=== PATIENT | female | born 1990 | race Caucasian/White ===

== ENCOUNTER → 2017-01-29 | Outpatient (CLI) | payer BC | LOC: MW.CHOBGYN 10:36 | PROVIDERS: ATTEND Nurse Practitioner Women's Health | DX: R10.2 Pelvic and perineal pain (principal) | CPT/HCPCS: 36415; 84703; 85025 ==

== ENCOUNTER 2020-08-31 09:10 | Day surgery (SDC) | payer BC, OTHER ==
[2020-08-28 11:20] LABS: BLOOD UREA NITROGEN,BUN 10 mg/dL (7.0-18.0); CARBON DIOXIDE,CO2 29.1 mmol/L (21.0-32.0); CHLORIDE,CL 103 mmol/L (98-107); GLUCOSE RANDOM 87 mg/dL (74-106); POTASSIUM,K 4.6 mmol/L (3.5-5.1); SODIUM,NA 140 mmol/L (136-145)
[~2020-08-31 09:10] MED LIST: Sodium Chloride 0.9% 10 ML SDV IV PRN; Sodium Chloride 0.9% 10 ML Syringe FLUSH PRN; Sodium Chloride 0.9% 2.5 ML Syringe FLUSH PRN
[2020-08-31] MEDS ORDERED: Lidocaine 2% 5 ML SDV ONE (09:39)
[2020-08-31] MEDS ORDERED: Ondansetron 4 MG/2 ML SDV ONE (09:39)
[2020-08-31] MEDS ORDERED: fentaNYL 250 MCG/5 ML SDV ONE (09:39)
[2020-08-31] MEDS ORDERED: Propofol 200 MG/20 ML SDV ONE (09:39)
[2020-08-31] MEDS ORDERED: Midazolam 1 MG/ML 2 ML SDV ONE (09:39)
[2020-08-31] MEDS ORDERED: Dexamethasone 4 MG/ML 5 ML MDV ONE (09:39)
[2020-08-31] MEDS ORDERED: Rocuronium Bromide 50 MG/5 ML Syringe ONE (09:39)
[2020-08-31] MEDS ORDERED: fentaNYL 100 MCG/2 ML SDV IVPUSH PRN (09:49)
[2020-08-31] MEDS ORDERED: Scopolamine 1.5 MG Transdermal Patch TRDERM PRN (09:58)
--- NOTE | 2020-08-31 10:02 | PCM.PREANE ---
Preanesthetic Assessment - Anesthesia/Transfusion/Family Hx Anesthesia History: Prior Anesthesia Without Reaction Family History of Anesthesia Reaction: No Transfusion History: No Prior Transfusion(s) Intubation History: Unknown - Review of Systems General: No Symptoms Pulmonary: No Symptoms Cardiovascular: No Symptoms Gastrointestinal: Nausea Neurological: No Symptoms Other: Reports: None - Physical Assessment Vital Signs: Last Vital Signs Temp 36.0 C L 08/31/20 09:30 Pulse 78 08/31/20 09:30 Resp 16 08/31/20 09:30 BP 112/64 08/31/20 09:30 Pulse Ox 97 08/31/20 09:30 Height: 5 ft 1 in Weight: 43.091 kg ASA Class: 2 Mental Status: Alert & Oriented x3 Airway Class: Mallampati = 1 Dentition: Reports: Normal Dentition Thyro-Mental Finger Breadths: 3 Mouth Opening Finger Breadths: 3 ROM/Head Extension: Full Lungs: Clear to Auscultation, Normal Respiratory Effort Cardiovascular: Regular Rate, Regular Rhythm - Lab Values: Laboratory Last Values WBC 10.14 K/uL (4.0-11.0) 08/28/20 10:20 RBC 4.28 M/uL (4.30-5.90) L 08/28/20 10:20 Hgb 12.4 g/dL (12.0-16.0) 08/28/20 10:20 Hct 37.8 % (36.0-46.0) 08/28/20 10:20 MCV 88.3 fL (80.0-98.0) 08/28/20 10:20 MCH 29.0 pg (27.0-32.0) 08/28/20 10:20 MCHC 32.8 g/dL (31.0-37.0) 08/28/20 10:20 RDW Std Deviation 42.5 fl (28.0-62.0) 08/28/20 10:20 RDW Coeff of Enrrique 13 % (11.0-15.0) 08/28/20 10:20 Plt Count 398 K/uL (150-400) 08/28/20 10:20 MPV 9.80 fL (7.40-12.00) 08/28/20 10:20 Nucleated RBC % 0.0 /100WBC 08/28/20 10:20 Nucleated RBCs # 0 K/uL 08/28/20 10:20 Sodium 140 mmol/L (136-145) 08/28/20 10:20 Potassium 4.6 mmol/L (3.5-5.1) 08/28/20 10:20 Chloride 103 mmol/L (98-107) 08/28/20 10:20 Carbon Dioxide 29.1 mmol/L (21.0-32.0) 08/28/20 10:20 BUN 10 mg/dL (7.0-18.0) 08/28/20 10:20 Creatinine 0.8 mg/dL (0.6-1.0) 08/28/20 10:20 Est Cr Clr Drug Dosing 70.58 mL/min 08/28/20 10:20 Estimated GFR (MDRD) > 60.0 ml/min 08/28/20 10:20 Glucose 87 mg/dL (74-106) 08/28/20 10:20 Calcium 9.2 mg/dL (8.5-10.1) 08/28/20 10:20 HCG, Qual NEGATIVE (NEG) 08/28/20 10:20 Blood Type O NEGATIVE 08/28/20 10:20 Antibody Screen NEGATIVE 08/28/20 10:20 - Allergies Allergies/Adverse Reactions: Allergies Allergy/AdvReac Type Severity Reaction Status Date / Time No Known Allergies Allergy Verified 08/25/20 12:08 - Blood Blood Available: No - Anesthesia Plan Pre-Op Medication Ordered: None - Acknowledgements Anesthesia Type Planned: General Anesthesia Pt an Appropriate Candidate for the Planned Anesthesia: Yes Alternatives and Risks of Anesthesia Discussed w Pt/Guardian: Yes Pt/Guardian Understands and Agrees with Anesthesia Plan: Yes PreAnesthesia Questionnaire - Past Health History Medical/Surgical History: Denies Medical/Surgical History HEENT History: Reports: Impaired Vision Other HEENT History: wears glasses Cardiovascular History: Reports: None Respiratory History: Reports: None Gastrointestinal History: Reports: GERD Genitourinary History: Reports: None [employer] History: Reports: Other (See Below) Other OB/BYN History: Mass on left uterus. Surgery done to remove mass and left ovary. Left tube, right ovary/tube, and uterus intact. Musculoskeletal History: Reports: Arthritis Neurological History: Reports: None Psychiatric History: Reports: Anxiety Endocrine/Metabolic History: Reports: None Hematologic History: Reports: None Immunologic History: Reports: None Oncologic (Cancer) History: Reports: None Dermatologic History: Reports: Eczema - Infectious Disease History Infectious Disease History: Reports: Chicken Pox Other Infectious Disease History: when a child - Past Surgical History Head Surgeries/Procedures: Reports: None HEENT Surgical History: Reports: None Cardiovascular Surgical History: Reports: None GI Surgical History: Reports: None Female Surgical History: Reports: None, Other (See Below) (Laparotomy with left oophorectomy (Dr Irene) 2016) Musculoskeletal Surgical History: Reports: None - SUBSTANCE USE Tobacco Use Status *Q: Light Tobacco User (5 cigarettes per day) - HOME MEDS Home Medications: Home Meds Hydrocodone/Acetaminophen [Hydrocodone-Acetamin 5-325 mg] 1 tab PO ASDIRECTED PRN 08/28/20 [History] No115/Iron/Folic Acid [ 19 Chewable Tablet] 2 tab PO DAILY 08/28/20 [History] - CURRENT (IN HOUSE) MEDS Current Meds: Current Medications Fentanyl (Sublimaze) 50 mcg IVPUSH Q5M PRN PRN Reason: Pain (severe 7-10) Stop: 09/01/20 09:50 Sodium Chloride (Saline Flush) 10 ml FLUSH ASDIRECTED PRN PRN Reason: Keep Vein Open Sodium Chloride (Saline Flush) 2.5 ml FLUSH ASDIRECTED PRN PRN Reason: Keep Vein Open Sodium Chloride (Normal Saline) 10 ml IV ASDIRECTED PRN PRN Reason: IV Use Discontinued Medications Dexamethasone (Dexamethasone) Confirm Administered Dose 20 mg .ROUTE .STK-MED ONE Stop: 08/31/20 09:40 Fentanyl (Sublimaze) Confirm Administered Dose 250 mcg .ROUTE .STK-MED ONE Stop: 08/31/20 09:40 Lidocaine (Xylocaine-Mpf 2%) Confirm Administered Dose 5 ml .ROUTE .STK-MED ONE Stop: 08/31/20 09:40 Midazolam HCl (Versed 1 Mg/Ml) Confirm Administered Dose 2 mg .ROUTE .STK-MED ONE Stop: 08/31/20 09:40 Ondansetron HCl (Zofran) Confirm Administered Dose 4 mg .ROUTE .STK-MED ONE Stop: 08/31/20 09:40 Propofol (Diprivan 20 Ml) Confirm Administered Dose 400 mg .ROUTE .STK-MED ONE Stop: 08/31/20 09:40 Rocuronium Robinson (Rocuronium Robinson) Confirm Administered Dose 50 mg .ROUTE .[facility] Stop: 08/31/20 09:40
[2020-08-31] MEDS ORDERED: Scopolamine 1.5 MG Transdermal Patch ONE (10:04)
[2020-08-31] MEDS ORDERED: Lactated Ringers 1,000 ML IV SCH (10:15)
[2020-08-31] MEDS ORDERED: Ketamine 500 mg/10 ML MDV ONE (11:32)
[2020-08-31] MEDS ORDERED: HYDROmorphone 2 MG/ML Syringe ONE (11:32)
[2020-08-31] MEDS ORDERED: Glycopyrrolate 0.2 MG/ML SDV ONE (11:48)
[2020-08-31] MEDS ORDERED: Ketorolac 30 MG/ML SDV ONE (11:48)
[2020-08-31] MEDS ORDERED: Ondansetron 4 MG/2 ML SDV IVPUSH PRN (12:04)
[2020-08-31] MEDS ORDERED: Promethazine 25 MG/ML SDV IM PRN (12:04)
[2020-08-31] MEDS ORDERED: Morphine 4 MG/ML Syringe IVPUSH PRN (12:04)
[2020-08-31] MEDS ORDERED: Ketorolac 30 MG/ML SDV IVPUSH ONE (12:04)
[2020-08-31] MEDS ORDERED: Acetaminophen/oxyCODONE 325-5 MG Tab PO PRN (12:04)
[2020-08-31] MEDS ORDERED: Bupivacaine 0.25% 10 ML SDV ONE (12:04)
[2020-08-31] MEDS ORDERED: Octyl 2-Cyanoacrylate 1 Tube ONE (12:04)
--- NOTE | 2020-08-31 12:04 | PCM.OPNOTE ---
- General Post-Op/Procedure Note Date of Surgery/Procedure: 08/31/20 Operative Procedure(s): Laprotomy. Pre Op Diagnosis: ovarian Cyst. Post-Op Diagnosis: Same Anesthesia Technique: General ET Tube Primary Surgeon: Artie Irene Sandwich Hand: Salud Branham EBL in mLs: 150 Complications: None Condition: Good
--- NOTE | 2020-08-31 13:09 | PCM.POSTAN ---
POST ANESTHESIA ASSESSMENT - MENTAL STATUS Mental Status: Alert, Oriented - VITAL SIGNS Vital Signs: Last Vital Signs Temp 36.3 C 08/31/20 12:30 Pulse 61 08/31/20 13:01 Resp 15 08/31/20 13:01 BP 119/80 08/31/20 13:01 Pulse Ox 100 08/31/20 13:01 - RESPIRATORY Respiratory Status: Respiratory Rate WNL, Airway Patent, O2 Saturation Stable - CARDIOVASCULAR CV Status: Pulse Rate WNL, Blood Pressure Stable - GASTROINTESTINAL GI Status: No Symptoms - PAIN Pain Score: 4 - POST OP HYDRATION Hydration Status: Adequate & Stable - OBSERVATIONS Free Text/Narrative:: No anesthesia problems
[2020-08-31] MEDS: Acetaminophen/oxyCODONE 325-5 MG Tab PO PRN ×2 (13:45→18:11)
--- NOTE | 2020-08-31 14:50 | OR ---
SURGEON: Artie Irene MD DATE OF PROCEDURE: 08/31/2020 PREOPERATIVE DIAGNOSIS: Large right ovarian cyst, resolved to be endometrioma of the right ovary. POSTOPERATIVE DIAGNOSIS: Large right ovarian cyst, resolved to be endometrioma of the right ovary. OPERATION PERFORMED: Diagnostic laparoscopy converted to exploratory laparotomy with the right ovarian cystectomy and peritoneal lavage. PRIMARY SURGEON: Artie Irene MD MONUMENT SETTER: Salud Branham. ANESTHESIA: General endotracheal intubation, Saranya Don. ESTIMATED BLOOD LOSS: 150 mL. COMPLICATIONS: None. FINDING: Endometrioma of the right ovary. INDICATIONS FOR SURGERY: [place] referred to the admit note. PROCEDURE IN DETAIL: The patient was brought to the OR, properly identified. After adequate level of general anesthesia, the patient placed in lithotomy position, access to the abdomen and the vagina. The patient was prepped and draped in sterile fashion as usual. Straight catheter used to empty the bladder and Hulka manipulator placed in the uterus for manipulation. The operation shifted abdominally. Stab wound done beneath the umbilicus. The Veress needle was placed in the peritoneal cavity and that cavity insufflated with 3.5 carbon dioxide. Utilizing Visiport technique, the laparoscope inserted in the peritoneal cavity. Inspection of the pelvic organ revealed there was evidence of endometriosis in the pelvis and it is consistent with her previous diagnosis with her other ovary that this most likely is an endometrioma. A 10/12 trocar placed in the left iliac fossa. I tried to maneuver, and I decompressed the cyst laparoscopically. However, I felt it is to do an adequate job to excise the whole endometriotic cyst and that the operation has to be converted to laparotomy, so we proceeded with that. She had a midline incision. I opened the midline incision. Samira fascia and rectus fascia were opened in direction of the incision. Once I had entered, then thorough irrigation of the peritoneal cavity was done. The right ovary was pulled to the outside and then the edge and the landmark of the endometriotic cyst were identified. Using electrocautery, the cyst wall and some of the ovarian tissue were excised and removed and sent for histopathology for frozen section. Then, the remaining part of the ovary was thoroughly irrigated with a copious amount of normal saline. The edge of the ovary was not bleeding, so a loose interrupted suture was applied to pull the ovary together. Once was that done, then inspection of the entire operative field showed no oozing, no bleeding, and then thorough irrigation was performed. After that, the abdominal wall was closed in layer including the laparoscopic incision. Instrument and sponge count was correct. The patient tolerated the procedure well, went to recovery room in stable general condition. MADELINE DIXON /[id number]
[2020-08-31] MEDS ORDERED: Ketorolac 30 MG/ML SDV IVPUSH PRN (18:00)
[2020-09-01] MEDS: Acetaminophen/oxyCODONE 325-5 MG Tab PO PRN ×2 (05:21→09:36)
[2020-09-01 06:57] LABS: BLOOD UREA NITROGEN,BUN 7 mg/dL (7.0-18.0); CARBON DIOXIDE,CO2 24.2 mmol/L (21.0-32.0); CHLORIDE,CL 101 mmol/L (98-107); GLUCOSE RANDOM 103 mg/dL (74-106); SODIUM,NA 136 mmol/L (136-145)
[2020-09-01 08:15] VITALS: BP 99/54; PULSE 67
--- NOTE | 2020-09-01 08:36 | PCM48HPAN ---
Post Anesthesia Note - EVALUATION WITHIN 48HRS OF ANESTHETIC Vital Signs in Normal Range: Yes Patient Participated in Evaluation: Yes Respiratory Function Stable: Yes Airway Patent: Yes Cardiovascular Function Stable: Yes Hydration Status Stable: Yes Pain Control Satisfactory: Yes Nausea and Vomiting Control Satisfactory: Yes Mental Status Recovered: Yes Vital Signs: Last Vital Signs Temp 36.9 C 09/01/20 07:47 Pulse 67 09/01/20 07:47 Resp 16 09/01/20 07:47 BP 99/54 L 09/01/20 07:47 Pulse Ox 95 09/01/20 07:47 - COMMENTS/OBSERVATIONS Free Text/Narrative:: The patient has no complaints at this time. The patient appears comfortable and in no acute distress. There were no apparent anesthetic complications at this time. Discharge per criteria.
--- NOTE | 2020-09-01 09:29 | PCM.SURGPN ---
- General Info Date of Service: 09/01/20 Functional Status: Reports: Pain Controlled - Review of Systems General: Reports: No Symptoms HEENT: Reports: No Symptoms Pulmonary: Reports: No Symptoms Cardiovascular: Reports: No Symptoms Gastrointestinal: Reports: No Symptoms Genitourinary: Reports: No Symptoms Musculoskeletal: Reports: No Symptoms Skin: Reports: No Symptoms Neurological: Reports: No Symptoms Psychiatric: Reports: No Symptoms - Patient Data Vitals - Most Recent: Last Vital Signs Temp 36.9 C 09/01/20 07:47 Pulse 67 09/01/20 07:47 Resp 16 09/01/20 07:47 BP 99/54 L 09/01/20 07:47 Pulse Ox 95 09/01/20 07:47 Weight - Most Recent: 43.091 kg Lab Results Last 24 Hrs: Laboratory Results - last 24 hr 09/01/20 09/01/20 Range/Units 05:39 05:39 WBC 18.41 H (4.0-11.0) K/uL RBC 3.89 L (4.30-5.90) M/uL Hgb 11.0 L (12.0-16.0) g/dL Hct 33.9 L (36.0-46.0) % MCV 87.1 (80.0-98.0) fL MCH 28.3 (27.0-32.0) pg MCHC 32.4 (31.0-37.0) g/dL RDW Std Deviation 43.0 (28.0-62.0) fl RDW Coeff of Enrrique 13 (11.0-15.0) % Plt Count 397 (150-400) K/uL MPV 10.10 (7.40-12.00) fL Neut % (Auto) 82.2 H (48.0-80.0) % Lymph % (Auto) 9.2 L (16.0-40.0) % [place] % (Auto) 8.4 (0.0-15.0) % Eos % (Auto) 0.1 (0.0-7.0) % Baso % (Auto) 0.1 (0.0-1.5) % Neut # (Auto) 15.1 H (1.4-5.7) K/uL Lymph # (Auto) 1.7 (0.6-2.4) K/uL [place] # (Auto) 1.6 H (0.0-0.8) K/uL Eos # (Auto) 0.0 (0.0-0.7) K/uL Baso # (Auto) 0.0 (0.0-0.1) K/uL Nucleated RBC % 0.0 /100WBC Nucleated RBCs # 0 K/uL Sodium 136 (136-145) mmol/L Potassium 4.0 (3.5-5.1) mmol/L Chloride 101 (98-107) mmol/L Carbon Dioxide 24.2 (21.0-32.0) mmol/L BUN 7 (7.0-18.0) mg/dL Creatinine 0.8 (0.6-1.0) mg/dL Est Cr Clr Drug Dosing 70.58 mL/min Estimated GFR (MDRD) > 60.0 ml/min Glucose 103 (74-106) mg/dL Calcium 8.3 L (8.5-10.1) mg/dL Med Orders - Current: Current Medications Fentanyl (Sublimaze) 50 mcg IVPUSH Q5M PRN PRN Reason: Pain (severe 7-10) Stop: 09/01/20 09:50 Lactated Ringer's (Ringers, Lactated) 1,000 mls @ 125 mls/hr IV ASDIRECTED [facility] Last Admin: 08/31/20 09:50 Dose: 125 mls/hr Documented by: Ketorolac Tromethamine (Toradol) 30 mg IVPUSH Q6H PRN PRN Reason: Pain (severe 7-10) Stop: 09/05/20 18:01 Last Admin: 09/01/20 05:22 Dose: 30 mg Documented by: Morphine Sulfate (Morphine) 4 mg IVPUSH Q2H PRN PRN Reason: Pain (severe 7-10) Ondansetron HCl (Zofran) 4 mg IVPUSH Q6H PRN PRN Reason: Nausea/Vomiting Oxycodone/Acetaminophen (Percocet 325-5 Mg) 1 tab PO Q4H PRN PRN Reason: Pain (moderate 4-6) Last Admin: 09/01/20 05:21 Dose: 1 tab Documented by: Oxycodone/Acetaminophen (Percocet 325-5 Mg) 2 tab PO Q4H PRN PRN Reason: Pain (moderate 4-6) Promethazine HCl (Phenergan) 25 mg IM Q6H PRN PRN Reason: Nausea/Vomiting Scopolamine (Transderm-Scop) 1.5 mg TRDERM Q72H PRN PRN Reason: Nausea Sodium Chloride (Saline Flush) 10 ml FLUSH ASDIRECTED PRN PRN Reason: Keep Vein Open Sodium Chloride (Saline Flush) 2.5 ml FLUSH ASDIRECTED PRN PRN Reason: Keep Vein Open Sodium Chloride (Normal Saline) 10 ml IV ASDIRECTED PRN PRN Reason: IV Use Discontinued Medications Bupivacaine HCl (Sensorcaine-Mpf 0.25%) Confirm Administered Dose 10 ml .ROUTE .STK-MED ONE Stop: 08/31/20 12:05 Dexamethasone (Dexamethasone) Confirm Administered Dose 20 mg .ROUTE .STK-MED ONE Stop: 08/31/20 09:40 Fentanyl (Sublimaze) Confirm Administered Dose 250 mcg .ROUTE .STK-MED ONE Stop: 08/31/20 09:40 Glycopyrrolate (Robinul) Confirm Administered Dose 0.4 mg .ROUTE .STK-MED ONE Stop: 08/31/20 11:49 Hydromorphone HCl (Dilaudid) Confirm Administered Dose 2 mg .ROUTE .STK-MED ONE Stop: 08/31/20 11:33 Ketamine HCl (Ketalar) Confirm Administered Dose 500 mg .ROUTE .STK-MED ONE Stop: 08/31/20 11:33 Ketorolac Tromethamine (Toradol) Confirm Administered Dose 30 mg .ROUTE .STK-MED ONE Stop: 08/31/20 11:49 Ketorolac Tromethamine (Toradol) 30 mg IVPUSH ONETIME ONE Stop: 08/31/20 12:05 Last Admin: 08/31/20 12:58 Dose: 30 mg Documented by: Lidocaine (Xylocaine-Mpf 2%) Confirm Administered Dose 5 ml .ROUTE .STK-MED ONE Stop: 08/31/20 09:40 Midazolam HCl (Versed 1 Mg/Ml) Confirm Administered Dose 2 mg .ROUTE .STK-MED ONE Stop: 08/31/20 09:40 Octyl Cyanoacrylate (Dermabond Advance) Confirm Administered Dose 1 applic .ROUTE .STK-MED ONE Stop: 08/31/20 12:05 Ondansetron HCl (Zofran) Confirm Administered Dose 4 mg .ROUTE .STK-MED ONE Stop: 08/31/20 09:40 Propofol (Diprivan 20 Ml) Confirm Administered Dose 400 mg .ROUTE .STK-MED ONE Stop: 08/31/20 09:40 Rocuronium [place] (Rocuronium [place]) Confirm Administered Dose 50 mg .ROUTE .STK-MED ONE Stop: 08/31/20 09:40 Scopolamine (Transderm-Scop) Confirm Administered Dose 1.5 mg .ROUTE .STK-MED ONE Stop: 08/31/20 10:05 Last Admin: 08/31/20 10:00 Dose: 1.5 mg Documented by: - Exam Wound/Incisions: Healing Well General: Alert, Oriented HEENT: Pupils Equal Neck: Supple Lungs: Clear to Auscultation, Normal Respiratory Effort Cardiovascular: Regular Rate, Regular Rhythm GI/Abdominal Exam: Normal Bowel Sounds, Soft, Non-Tender, No Organomegaly, No Distention, No Abnormal Bruit, No Mass, Pelvis Stable Extremities: Normal Inspection, Normal Range of Motion, Non-Tender, No Pedal Edema, Normal Capillary Refill Skin: Warm, Dry, Intact Neurological: No New Focal Deficit Psy/Mental Status: Alert, Normal Affect, Normal Mood Sepsis Event Note - Evaluation Sepsis Screening Result: No Definite Risk - Focused Exam Vital Signs: Vital Signs Temp Pulse Resp BP Pulse Ox 09/01/20 07:47 36.9 C 67 16 99/54 L 95 09/01/20 05:08 36.9 C 76 16 112/61 98 09/01/20 01:07 37.2 C 83 16 97/56 L 95 08/31/20 22:00 16 97 - Problem List Review Problem List Initiated/Reviewed/Updated: Yes - My Orders Last 24 Hours: Active Orders 24 hr Category Date Time Status Patient Status [ADT] Routine ADT 08/31/20 12:04 Active Antiembolic Devices [RC] PER UNIT ROUTINE Care 08/31/20 12:04 Active Bradycardia-Neuroaxis [employer] [RC] ROUTINE Care 08/31/20 09:49 Active Hypertension-Neuroaxis [employer] [RC] ROUTINE Care 08/31/20 09:49 Active Hypotension-Neuroaxis [employer] [RC] ROUTINE Care 08/31/20 09:49 Active Notify Provider Vital Signs [RC] ASDIRECTED Care 08/31/20 12:04 Active Oxygen Therapy [RC] ASDIRECTED Care 08/31/20 09:50 Active Oxygen Therapy [RC] ASDIRECTED Care 08/31/20 12:04 Active RT Incentive Spirometry [RC] Q2HWA Care 08/31/20 12:04 Active Up With Assistance [RC] PER UNIT ROUTINE Care 08/31/20 12:04 Active Up ad Ade [RC] PER UNIT ROUTINE Care 08/31/20 12:04 Active Urinary Catheter Removal [RC] Per Unit Routine Care 08/31/20 12:04 Active Vital Signs [RC] PER UNIT ROUTINE Care 08/31/20 12:04 Active Regular Diet [DIET] Diet 08/31/20 Dinner Active Acetaminophen/oxyCODONE [Percocet 325-5 MG] Med 08/31/20 12:04 Active 1 tab PO Q4H PRN Acetaminophen/oxyCODONE [Percocet 325-5 MG] Med 08/31/20 12:04 Active 2 tab PO Q4H PRN Ketorolac [Toradol] Med 08/31/20 18:00 Active 30 mg IVPUSH Q6H PRN Lactated Ringers [Ringers, Lactated] 1,000 ml Med 08/31/20 10:15 Active IV ASDIRECTED Morphine Med 08/31/20 12:04 Active 4 mg IVPUSH Q2H PRN Ondansetron [Zofran] Med 08/31/20 12:04 Active 4 mg IVPUSH Q6H PRN Promethazine [Phenergan] Med 08/31/20 12:04 Active 25 mg IM Q6H PRN Scopolamine [Transderm-Scop] Med 08/31/20 09:58 Active 1.5 mg TRDERM Q72H PRN fentaNYL [Sublimaze] Med 08/31/20 09:49 Active 50 mcg IVPUSH Q5M PRN Peripheral IV Discontinue [OM.PC] Routine Oth 08/31/20 12:04 Ordered Sequential Compression Device [OM.PC] Per Unit Routine Oth 08/31/20 12:04 Ordered Resuscitation Status Routine Resus Stat 08/31/20 12:04 Ordered Medication Orders Fentanyl (Sublimaze) 50 mcg IVPUSH Q5M PRN PRN Reason: Pain (severe 7-10) Stop: 09/01/20 09:50 Lactated Ringer's (Ringers, Lactated) 1,000 mls @ 125 mls/hr IV ASDIRECTED [place] Last Admin: 08/31/20 09:50 Dose: 125 mls/hr Documented by: IJEOMA Ketorolac Tromethamine (Toradol) 30 mg IVPUSH Q6H PRN PRN Reason: Pain (severe 7-10) Stop: 09/05/20 18:01 Last Admin: 09/01/20 05:22 Dose: 30 mg Documented by: DAMIAN Morphine Sulfate (Morphine) 4 mg IVPUSH Q2H PRN PRN Reason: Pain (severe 7-10) Ondansetron HCl (Zofran) 4 mg IVPUSH Q6H PRN PRN Reason: Nausea/Vomiting Oxycodone/Acetaminophen (Percocet 325-5 Mg) 1 tab PO Q4H PRN PRN Reason: Pain (moderate 4-6) Last Admin: 09/01/20 05:21 Dose: 1 tab Documented by: Admin: 08/31/20 18:11 Dose: 1 tab Documented by: Admin: 08/31/20 13:45 Dose: 1 tab Documented by: ALEXANDRU Oxycodone/Acetaminophen (Percocet 325-5 Mg) 2 tab PO Q4H PRN PRN Reason: Pain (moderate 4-6) Promethazine HCl (Phenergan) 25 mg IM Q6H PRN PRN Reason: Nausea/Vomiting Scopolamine (Transderm-Scop) 1.5 mg TRDERM Q72H PRN PRN Reason: Nausea Sodium Chloride (Saline Flush) 10 ml FLUSH ASDIRECTED PRN PRN Reason: Keep Vein Open Sodium Chloride (Saline Flush) 2.5 ml FLUSH ASDIRECTED PRN PRN Reason: Keep Vein Open Sodium Chloride (Normal Saline) 10 ml IV ASDIRECTED PRN PRN Reason: IV Use - Assessment Assessment (Free Text/Narrative):: Status post exploratory laparotomy and right ovarian cystectomy postoperative day #1 the patient ambulatory on regular diet and voiding without any problem and her pain under control - Plan Plan (Free Text/Narrative):: She is discharged home today with a post operative instruction and a prescription of Martha 5/325 for postoperative pain. She and to come to the office 1 week ago for discharge
== END 2020-09-01 10:12 | disposition home or self-care (01) ==
LOC: MW.SDS 09:10 → MW.OB 13:38 → MW.SDS 09-01 10:12
PROVIDERS: ATTEND Obstetrics & Gynecology
DX: N80.1 Endometriosis of ovary (principal); F17.210 Nicotine dependence, cigarettes, uncomplicated; F41.9 Anxiety disorder, unspecified; Z79.899 Other long term (current) drug therapy; Z98.890 Other specified postprocedural states
CPT/HCPCS: 36415; 49084; 58925; 80048; 84703; 85025; 85027; 86850; 86900; 86901; 88307; 88331; A9270; J1100; J1170; J1885; J2001; J2250; J2704; J3010; J3490; J7120; 00840; J2405